=== PATIENT | male | born 1960 | race Caucasian/White ===

== ENCOUNTER 2020-12-01 11:27 | Emergency (ER) | payer MEDICAID ==
[~2020-12-01] VITALS: Ht 157.5 cm; Wt 82.0 kg
[2020-12-01 11:52] VITALS: BP 167/80
[2020-12-01] MEDS ORDERED: CEFTRIAXONE SODIUM 1 G/VIAL IM ONE (12:00)
[2020-12-01] MEDS ORDERED: CEPH500T MT (12:10)
[2020-12-01] MEDS ORDERED: SULF1TAB48 MT (12:10)
== END 2020-12-01 12:22 | disposition home or self-care (01) ==
LOC: ER 11:27
DX: L03.115 Cellulitis of right lower limb (principal); Z48.00 Encounter for change or removal of nonsurgical wound dressing
CPT/HCPCS: 96372; 99283; J0696; Z7610